=== PATIENT | male | born 1990 | race Hispanic/Latino ===

== ENCOUNTER 2016-12-23 09:53 | Emergency (ER) | payer MEDICAID, OTHER ==
[2016-12-23 10:16] VITALS: TEMP 97.7
[2016-12-23] MEDS ORDERED: Lidocaine 2% Jelly (Uro-Jet) TOP ONE (10:22)
--- NOTE | 2016-12-23 10:23 | C.PDOC ---
History Of Present Illness POSSIBLE R EAR FOREIGN BODY SINCE THIS MORNING. PS THINKS IT'S A BUG, CAN HEAR "SOMETHING SCURRYING AND BUZZING". DENIES HEARING LOSS, DC EXAM NAD HEENT L TM NEG. R EAR +SMALL INSECT VISUALIZED IN CANAL. NO CANAL SWELL, TM INTACT. Time Seen by Provider: 12/23/16 10:19 Chief Complaint (Nursing): Foreign Body History Per: Patient History/Exam Limitations: None Onset/Duration Of Symptoms: Hrs Current Symptoms Are (Timing): Still Present Quality (Ear): Foreign Body Past Medical History Reviewed: Historical Data, Nursing Documentation, Vital Signs Vital Signs: Last Vital Signs Temp 97.7 F 12/23/16 10:11 Pulse 95 H 12/23/16 10:11 Resp 20 12/23/16 10:11 BP 119/68 12/23/16 10:11 Pulse Ox 96 12/23/16 10:44 - Medical History PMH: No Chronic Diseases Family History: States: Unknown Family Hx - Social History Hx Alcohol Use: No Hx Substance Use: No - Immunization History Hx Tetanus Toxoid Vaccination: No Hx Influenza Vaccination: No Hx Pneumococcal Vaccination: No Review Of Systems Except As Marked, All Systems Reviewed And Found Negative. Constitutional: Negative for: Fever, Chills ENT: Positive for: Other (FB SENSATION, RIGHT EAR). Negative for: Ear Pain, Ear Discharge, Throat Pain Respiratory: Negative for: Cough Physical Exam - Physical Exam Appears: Non-toxic, No Acute Distress Skin: Normal Color, Warm, Dry Head: Atraumatic, Normacephalic Eye(s): bilateral: Normal Inspection, PERRL, EOMI Ear(s): Left: Normal, Right: Other (+SMALL INSECT VISUALIZED IN CANAL. NO CANAL SWELL, TM INTACT. ) Nose: Normal Oral Mucosa: Moist Throat: Normal, No Erythema, No Exudate Neurological/Psych: Oriented x3, Normal Speech, Normal Cognition ED Course And Treatment O2 Sat by Pulse Oximetry: 96 (RA) Pulse Ox Interpretation: Normal Disposition Counseled Patient/Family Regarding: Diagnosis, Need For Followup - Disposition Referrals: [facility] [Outside] [facility] [Outside] Disposition: HOME/ ROUTINE Disposition Time: 11:03 Condition: IMPROVED Instructions: Ear Foreign Body (ED) - Clinical Impression Clinical Impression: Ear foreign body - Scribe Statement The provider has reviewed the documentation as recorded by the Scribe PHONG MOUSSA Provider Attestation: All medical record entries made by the Cornel were at my direction and personally dictated by me. I have reviewed the chart and agree that the record accurately reflects my personal performance of the history, physical exam, medical decision making, and the department course for this patient. I have also personally directed, reviewed, and agree with the discharge instructions and disposition. PROCEDURES - FB Removal Ear Right Foreign Body Location: Ear Canal Right Foreign Body Suspected: Insect If Insect Suspected: Ear Canal Instilled w/ (VISC LIDO) TM Intact Pre-Procedure: Yes Foreign Body Removal Technique: Irrigation TM Intact Post Procedure: Yes Patient Tolorated Procedure: Well
[2016-12-23] MEDS ORDERED: Lidocaine 2% Jelly (Uro-Jet) ONE (10:28)
[2016-12-23 11:16] VITALS: BP 124/75; PULSE 82; RESP 18; O2SAT 98
== END 2016-12-23 11:18 | disposition home or self-care (01) ==
LOC: C.ER 09:53
DX: T16.1XXA Foreign body in right ear, initial encounter (principal); X58.XXXA Exposure to other specified factors, initial encounter; Y92.9 Unspecified place or not applicable